=== PATIENT | female | born 1970 | race Caucasian/White ===

== ENCOUNTER → 2020-05-07 10:03 | Outpatient (CLI) | payer OTHER | END | disposition home or self-care (01) | LOC: LAB 10:03 | PROVIDERS: ATTEND Emergency Medicine Pediatric Emergency Medicine | DX: Z03.818 Encounter for observation for suspected exposure to other biological agents ruled out (principal) ==

== ENCOUNTER 2021-05-07 08:17 | Outpatient (CLI) | payer OTHER | END 2021-05-07 08:22 | disposition home or self-care (01) | LOC: SONOGRAMA 08:17 | PROVIDERS: ATTEND Obstetrics & Gynecology | DX: M16.11 Unilateral primary osteoarthritis, right hip (principal); N60.11 Diffuse cystic mastopathy of right breast; N60.12 Diffuse cystic mastopathy of left breast ==

== ENCOUNTER 2021-06-25 13:28 | Outpatient (CLI) | payer OTHER | END 2021-06-25 13:30 | disposition home or self-care (01) | LOC: SONOGRAMA 13:28 | PROVIDERS: ATTEND Obstetrics & Gynecology | DX: N63.32 Unspecified lump in axillary tail of the left breast (principal); A18.2 Tuberculous peripheral lymphadenopathy ==